=== PATIENT | male | born 1990 | race Caucasian/White ===

== ENCOUNTER → 2023-06-06 14:57 | Outpatient (CLI) | payer SELFPAY ==
[2023-06-06 22:10] LABS: Urine N gonorrhoeae NOT DETECTED
[2023-06-06 22:16] LABS: Urine Chlamydia NOT DETECTED
== END ==
PROVIDERS: PCP Physician Assistant Medical; Visit Provider Physician Assistant Medical
DX: A64 Unspecified sexually transmitted disease (principal); N48.89 Other specified disorders of penis; N48.9 Disorder of penis, unspecified
CPT/HCPCS: 87491; 87591

== ENCOUNTER → 2023-06-07 08:52 | Outpatient (CLI) | payer SELFPAY ==
[2023-06-07 11:03] LABS: HIV 1 & 2 Ab/Ag 4th Gen Combo NEGATIVE (NEGATIVE); Hep C Virus Ab w/Reflex Quant NEGATIVE s/c (NEGATIVE)
[2023-06-08 07:59] LABS: RPR Screen Non Reactive (Non Reactive)
== END ==
PROVIDERS: PCP Physician Assistant Medical; Referring Provider Physician Assistant Medical; Visit Provider Physician Assistant Medical
DX: A64 Unspecified sexually transmitted disease (principal); N48.89 Other specified disorders of penis; N48.9 Disorder of penis, unspecified
CPT/HCPCS: 36415; 86592; 86696; 86803; 87389